=== PATIENT | male | born 1970 | race Caucasian/White ===

== ENCOUNTER 2020-08-25 10:51 | Outpatient (CLI) | payer MEDICARE, BC, SELFPAY ==
--- NOTE | 2020-08-25 11:05 | XR_ITS ---
WS: [id number] LUMBAR SPINE TECHNIQUE: 3 views of the lumbar spine CLINICAL INFORMATION: BACK PAIN COMPARISON: FINDINGS: 6 nonrib-bearing lumbar type vertebral bodies. Pedicle screw fixation L4-S1 is unchanged in appearance. Interbody fusion L4-5 L5-6. Slight retrolisthesis L3 on L4. Screw fixation across the le ft SI joint. IMPRESSION: 1. Pedicle screw fixation L4-S1 appears unchanged. Stable interbody fusion L4-5 and L5- 6. 2. Hardware appears intact and in good position. 3. Screw fixation across the left SI joint.
== END 2020-08-25 10:52 | disposition home or self-care (01) ==
LOC: RADWPI 11:04
PROVIDERS: PCP Family Medicine; Visit Provider Family Medicine
DX: M54.5 Low back pain (principal); M43.26 Fusion of spine, lumbar region
CPT/HCPCS: 72100

== ENCOUNTER → 2022-12-10 13:48 | Outpatient (BNVA) | payer MEDICARE, BC, SELFPAY | PROVIDERS: PCP Family Medicine; Visit Provider Family Medicine | DX: E78.5 Hyperlipidemia, unspecified (principal); G89.29 Other chronic pain; F11.90 Opioid use, unspecified, uncomplicated; E78.6 Lipoprotein deficiency | CPT/HCPCS: 80053; 80061 ==

== ENCOUNTER → 2023-02-03 09:42 | Outpatient (BNVA) | payer MEDICARE, BC, SELFPAY | PROVIDERS: PCP Family Medicine; Visit Provider Family Medicine | DX: Z13.89 Encounter for screening for other disorder (principal); Z82.0 Family history of epilepsy and other diseases of the nervous system; Z84.81 Family history of carrier of genetic disease | CPT/HCPCS: 81271 ==

== ENCOUNTER → 2023-06-03 11:16 | Outpatient (BNVA) | payer MEDICARE, BC, SELFPAY | PROVIDERS: PCP Family Medicine; Visit Provider Family Medicine | DX: E78.5 Hyperlipidemia, unspecified (principal); F11.90 Opioid use, unspecified, uncomplicated; G89.29 Other chronic pain; M79.2 Neuralgia and neuritis, unspecified; Z13.6 Encounter for screening for cardiovascular disorders | CPT/HCPCS: 80053; 80061; 83721 ==

== ENCOUNTER → 2024-05-21 11:53 | Outpatient (BNVA) | payer MEDICARE, BC, SELFPAY | PROVIDERS: PCP Family Medicine; Visit Provider Family Medicine | DX: E78.5 Hyperlipidemia, unspecified (principal) | CPT/HCPCS: 80053; 80061 ==

== ENCOUNTER → 2025-07-27 08:18 | Outpatient (BNVA) | payer MEDICARE, BC, SELFPAY | PROVIDERS: PCP Family Medicine; Visit Provider Family Medicine | DX: Z00.00 Encounter for general adult medical examination without abnormal findings (principal); E78.5 Hyperlipidemia, unspecified; F11.90 Opioid use, unspecified, uncomplicated; G89.29 Other chronic pain; G47.00 Insomnia, unspecified | CPT/HCPCS: 80053; 80061; 82607; 85025; G0103 ==